=== PATIENT | male | born 1950 | race Caucasian/White ===

== ENCOUNTER 2021-10-08 14:33 | Outpatient (CLI) | payer MEDICARE ==
[2021-10-09 12:35] LABS: SARS-CoV-2 PCR by NAA Not Detected (NotDetected)
== END 2021-10-08 14:34 | disposition home or self-care (01) ==
LOC: CSHLAB 14:33
PROVIDERS: ATTEND Urology
DX: Z01.818 Encounter for other preprocedural examination (principal); Z20.822 Contact with and (suspected) exposure to COVID-19; K40.20 Bilateral inguinal hernia, without obstruction or gangrene, not specified as recurrent
CPT/HCPCS: 93005; 93010; U0003; U0005

== ENCOUNTER 2021-10-11 06:55 | Day surgery (SDC) | payer MEDICARE ==
[2021-10-09 13:52] VITALS: BMI 25.1
[2021-10-11] MEDS ORDERED: Bupivacaine PF 0.5% 30 ML VIAL ONE (08:47)
[2021-10-11] MEDS ORDERED: EPINEPHrine 1 MG/ML AMP ONE (08:47)
[2021-10-11] MEDS ORDERED: Lidocaine 1% MPF 2 ML VIAL ONE (09:11)
[2021-10-11] MEDS ORDERED: PROPOFOL 20 ML ONE (09:26)
[2021-10-11] MEDS ORDERED: Fentanyl 100 MCG/2 ML VIAL ONE ×2 (09:26→10:52)
[2021-10-11] MEDS ORDERED: Ondansetron PF 4 MG/2 ML Vial ONE (09:28)
[2021-10-11] MEDS ORDERED: Dexamethasone 20 MG/5 ML VIAL ONE (09:28)
[2021-10-11] MEDS ORDERED: Lidocaine 2% PF 5 ML VIAL ONE (09:28)
[2021-10-11] MEDS ORDERED: Rocuronium Bromide 10 MG/ML (10ML VIAL) ONE (09:28)
[2021-10-11] MEDS ORDERED: ceFAZolin 2 GM/Dextrose 50 ML IVPB ONE (09:30)
[2021-10-11] MEDS ORDERED: HYDROcodone/Acetaminophen 5/325 mg Tablet PO PRN ×2 (09:43)
[2021-10-11] MEDS ORDERED: Acetaminophen 325 MG TAB PO PRN (09:43)
[2021-10-11] MEDS ORDERED: Glycopyrrolate 0.2 MG/ML 5 ML SYRINGE ONE (10:10)
[2021-10-11] MEDS ORDERED: HYDROcodone/Acetaminophen 5/325 mg Tablet ONE (11:48)
== END 2021-10-11 12:15 | disposition home or self-care (01) ==
LOC: CSHSDC 06:55
PROVIDERS: ATTEND Surgery
PROC: 0YUA4JZ Supplement Bilateral Inguinal Region with Synthetic Substitute, Percutaneous Endoscopic Approach (ICD-10-PCS; principal; 2021-10-11)
DX: K40.20 Bilateral inguinal hernia, without obstruction or gangrene, not specified as recurrent (principal); Z79.899 Other long term (current) drug therapy; E78.5 Hyperlipidemia, unspecified; E55.9 Vitamin D deficiency, unspecified; Z86.010 Personal history of colon polyps; I10 Essential (primary) hypertension
CPT/HCPCS: 49650; C1713; J0171; J0690; J1100; J2001; J2405; J2704; J3010; S0020